=== PATIENT | female | born 1975 | race Caucasian/White ===

== ENCOUNTER 2016-04-01 10:47 | Emergency (ER) | payer BC ==
[2016-04-01] MEDS ORDERED: IOPAMIDOL 300 (61%) 150 ML VIAL IV ONE (10:48)
[2016-04-01] MEDS ORDERED: ONDANSETRON 4 MG/2ML 2 ML VIAL ONE (11:14)
[2016-04-01] MEDS ORDERED: LACTATED RINGERS 1,000 ML ONE ×2 (11:14→12:59)
[2016-04-01 11:15] LABS: ABSOLUTE NEUTROPHIL COUNT 8.6 K/mm3 (1.8-7.7); BASO % 0.1 % (0.2-1.0); HEMATOCRIT 37.6 % (37.0-47.0); HEMOGLOBIN 13.4 gm/l (12.0-16.0); IMM NEUT% 0.3 % (0-1); LYMPH # 0.5 (1.0-4.8); LYMPH % 5.1 % (15-45); MEAN CELL VOLUME 96.7 fl (81.0-99.0); MEAN CORPUSCULAR HEMOGLOBIN 34.4 pg (27.0-31.0); MEAN CORPUSCULAR HGB CONC 35.6 g/dl (33.0-37.0); MEAN PLATELET VOLUME 9.9 fl (7.4-10.4); MONO # 0.2 (0.0-0.8); NEUT % 92.5 % (43-75); PLATELET COUNT 181 K/mm3 (130-400); RED CELL DISTRIBUTION WIDTH 11.9 % (11.5-14.5)
[2016-04-01 11:31] LABS: ALB/GLOB RATIO 1.3 (>1.0); CALCIUM 8.8 mg/dL (8.6-10.3)
[2016-04-01 12:17] LABS: BAND 3 % (0-10); BASOPHIL 0 % (0-1); EOSINOPHIL 0 % (1-3); LYMPHOCYTE 7 % (15-45); MONOCYTE 2 % (4-12); NEUTROPHILS 88 % (43-75); PLATELET ESTIMATE NORMAL (NORMAL); TOTAL CELLS COUNTED 100
[2016-04-01] MEDS ORDERED: FAMOTIDINE 10 MG/ML 2ML VIAL ONE (12:48)
[2016-04-01] MEDS ORDERED: HYDROMORPHONE HCL 0.5 MG/0.5 ML SYRINGE ONE (12:48)
[2016-04-01] MEDS ORDERED: ACETAMINOPHEN 500 MG TABLET ONE (12:59)
--- NOTE | 2016-04-01 13:37 | US ---
ABDOMINAL-LIMITED COMPARISON: None HISTORY: Epigastric pain for 2 weeks. Nausea, vomiting, and fever since last night. FINDINGS: Gall bladder: Normal size, 9 cm length. Normal wall thickness 2.1 mm. No stones or sludge. Common hepatic duct: 1.1 mm Common bile duct: 2.1 mm IMPRESSION: 1. Normal study. Report was sent to the emergency department [employer] medical record system 04/01/2016 at 13:39
--- NOTE | 2016-04-01 14:23 | CT ---
CHEST W/ CON COMPARISON: Gallbladder ultrasound, 04/01/2016 HISTORY: Abdominal pain and vomiting since last night. Diarrhea and nausea for 2 weeks. Fever. Technique: Intravenous injection 125 mL Isovue 300. Using a [employer] Aquilion [address] scanner, images were obtained through the thorax. An automated dose reduction technique was used to minimize patient radiation dose. Dose information: CTDIvol (mGy): 3.80 DLP(mGycm): 263.80 FINDINGS: Lungs: Normal. Trachea and bronchi: Normal. Heart and vessels: Normal. Mediastinum and jean: Normal. Esophagus: Normal. Pleura and pericardium: Normal. Chest wall and bones: Normal. IMPRESSION: 1. Normal study. Report was sent to the emergency department [employer] medical record system 04/01/2016 at 14:25
--- NOTE | 2016-04-01 14:23 | CT ---
ABD/PELVIS W/ CON COMPARISON: , Lateral ultrasound, 04/01/2016 HISTORY: 40-year-old female. Abdominal pain and vomiting since last night. Diarrhea and nausea for 2 weeks. Fever. Technique: Intravenous injection 125 mL Isovue 300. Using a [employer] Aquilion [address] scanner, images were obtained from the diaphragm to the floor the pelvis. An automated dose reduction technique was used to minimize patient radiation dose. Dose information: CTDIvol (mGy): 3.80 DLP(mGycm): 263.80 FINDINGS: Lung bases: Normal. Inferior mediastinum and heart: Normal. Liver: Normal. Gallbladder:Normal. Bile ducts: Normal. Pancreas: Normal. Spleen: Normal. Adrenal glands: Normal. Kidneys: Normal. Ureters: Normal Urinary bladder: Normal. Uterus and adnexa: Normal. Blood vessels: Normal Lymph nodes: Normal Stomach: Normal Duodenum: Normal Small intestine: Fluid-filled but nondilated. Appendix: Normal Colon: Fluid-filled descending colon and cecum. Nondilated. Abdominal wall and supporting musculature: Normal Bones: Normal IMPRESSION: 1. Fluid-filled nondilated small intestine and right-sided colon, evidence of enteritis. The report was sent to the emergency department [employer] [facility] record system 04/01/2016 at 14:24
[2016-04-01] MEDS ORDERED: MAALOX/LIDO2%VISC/SIMETHICONE 40 ML BOT ONE (14:52)
== END 2016-04-01 15:08 | disposition home or self-care (01) ==
LOC: ED 10:47
DX: R10.13 Epigastric pain (principal); R11.2 Nausea with vomiting, unspecified; R19.7 Diarrhea, unspecified; R50.9 Fever, unspecified; Z86.718 Personal history of other venous thrombosis and embolism